=== PATIENT | male | born 1980 | race Two or more races ===

== ENCOUNTER 2018-07-26 07:45 | Day surgery (SDC) | payer MEDICARE, MEDICAID ==
[2018-07-26 08:36] VITALS: BMI 24.0
[2018-07-26] MEDS ORDERED: Propofol 10 mg/ml Inj (20 ML) ONE (10:28)
[2018-07-26] MEDS ORDERED: Midazolam 2 MG/2 ML VIAL ONE (10:28)
[2018-07-26] MEDS ORDERED: Lidocaine Hydrochloride 5 ML INJ ONE (10:29)
[2018-07-26] MEDS ORDERED: Lactated Ringer's 1,000 ML IV ONE (10:37)
--- NOTE | 2018-07-26 10:38 | CP.SDSHP ---
Same Day Surgery H & P - History Proposed Procedure: EGD/ COLONSCOPY Pre-Op Diagnosis: SEE NOTES - Previous Medical/Surgical History Neuro: Other Misc: Other Pain: 4.Moderate Pain - Allergies Allergies: Allergies latex Allergy (Verified 07/26/18 09:50) ITCHING - Physical Exam General Appearance: N Vital Signs: Vital Signs 07/26/18 08:15 Temperature 97.1 F L Pulse Rate 80 Respiratory 20 Rate Blood Pressure 115/72 O2 Sat by Pulse 97 Oximetry Mental Status: Alert & Oriented x3 Neuro: WNL Heart: WNL Lungs: WNL GI: Other - {Optional Preform as Required} Breast: WNL Abdomen: Other Rectal: Other Integument: WNL : WNL Ortho: WNL ENT: WNL - Impression Pt. Evaluated Today:Candidate for Anesthesia & Procedure: Yes - Date & Time Time: 10:37 Short Stay Discharge - Short Stay Discharge Admitting Diagnosis/Reason for Visit: DYSPEPSIA, CHANGE IN BOWEL HABITS Disposition: HOME/ ROUTINE Referrals: Bernadette Ybarra MD [Primary Care Provider] -
[2018-07-26] MEDS ORDERED: Belladonna-Phenobarbital PO STA (11:09)
[2018-07-26] MEDS: Sucralfate 1 gm/10 ml Oral Susp UD PO ONE ×2 (12:40→13:15)
[2018-07-26 13:48] VITALS: TEMP 97.4
[2018-07-26 13:56] VITALS: BP 104/64; PULSE 80; RESP 19; O2SAT 100
== END 2018-07-26 14:30 | disposition home or self-care (01) ==
LOC: C.ENDO 07:45
PROVIDERS: ATTEND Specialist
DX: D12.5 Benign neoplasm of sigmoid colon (principal); K64.8 Other hemorrhoids; K64.4 Residual hemorrhoidal skin tags; K44.9 Diaphragmatic hernia without obstruction or gangrene; K63.89 Other specified diseases of intestine; K29.50 Unspecified chronic gastritis without bleeding; Q61.3 Polycystic kidney, unspecified; Z98.2 Presence of cerebrospinal fluid drainage device; Z91.040 Latex allergy status
CPT/HCPCS: 43239; 45380; 88305; 88342; J2250; J2704; J3010; J7120

== ENCOUNTER 2018-09-14 20:27 | Inpatient (IN) | payer MEDICARE, MEDICAID ==
[2018-09-14 20:27] VITALS: BMI 24.0
--- NOTE | 2018-09-14 21:00 | C.PDOC ---
History Of Present Illness 38 y/o male with a PMHx of spina bifida and previous pyelonephritis and hydronephrosis, presents today complaining of difficulty passing his urine for the last couple of days. Patient reports only voiding a small amount of urine each time. He also complains of fullness in the bladder as well as left flank and suprapubic pain, which is constant. He denies any fevers, nausea, vomiting, or hematuria. Patient recently completed a colonoscopy with Dr. Rendon, which he states was normal. At his follow up appointment today, patient voiced these complaints and Dr. Rendon suggested he come to the ED. Time Seen by Provider: 09/14/18 20:41 Chief Complaint (Nursing): Male Genitourinary History Per: Patient History/Exam Limitations: no limitations Onset/Duration Of Symptoms: Days Current Symptoms Are (Timing): Still Present Associated Symptoms: Urinary Symptoms Past Medical History Reviewed: Historical Data, Nursing Documentation, Vital Signs Vital Signs: Last Vital Signs Temp 98.9 F 09/14/18 20:36 Pulse 82 09/14/18 20:36 Resp 20 09/14/18 20:36 BP 123/73 09/14/18 20:36 Pulse Ox 99 09/14/18 20:36 - Medical History PMH: Anemia (CHILDHOOD), Anxiety, Colonic Polyps, Depression (NO MEDICATION), Chronic Kidney Disease (HYDRONEPHROSIS,PYELONEPHRITIS) Denies: Fractures Other PMH: Spina Bifida Surgical History: Endoscopy Denies: Pacemaker Other Surgeries: 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 Negative for: Nausea, Vomiting, Diarrhea Genitourinary: Positive for: Other (difficulty passing urine). Negative for: Hematuria Musculoskeletal: Positive for: Back Pain (left flank) Skin: Negative for: Rash Neurological: Negative for: Headache, Dizziness Physical Exam - Physical Exam Appears: Non-toxic, No Acute Distress Skin: Warm, Dry, No Rash Head: Atraumatic, Normacephalic Eye(s): bilateral: Normal Inspection, PERRL, EOMI Neck: Normal ROM Chest: Symmetrical Cardiovascular: Rhythm Regular, No Murmur Respiratory: Normal Breath Sounds, No Accessory Muscle Use Gastrointestinal/Abdominal: Soft, No Tenderness, No Distention, No Guarding Back: CVA Tenderness (Slight left flank/CVA tenderness) Extremity: Bilateral: Atraumatic, Normal Color And Temperature Neurological/Psych: Oriented x3, Normal Speech ED Course And Treatment - Laboratory Results Result Diagrams: 09/14/18 21:10 09/14/18 21:10 Lab Interpretation: Abnormal (UA WBC 107 with many bacteria, nitrite positive, 3+ leukocyte esterase) O2 Sat by Pulse Oximetry: 99 (RA) Pulse Ox Interpretation: Normal - CT Scan/US CT abd/pel Other Rad Studies (CT/US): Read By Radiologist, Radiology Report Reviewed CT/US Interpretation: EXAM: CT Abdomen and Pelvis without IV contrast. CLINICAL HISTORY: Abd nd left flank pain. TECHNIQUE: Axial computed tomography images of the abdomen and pelvis without intravenous contrast. 0.00 mGy-cm. CONTRAST: Without. COMPARISON: None provided. FINDINGS: BREASTS: Mild-moderate bilateral gynecomastia is noted. LUNG BASES: The lung bases appear clear. No pleural effusions are seen. LIVER: Unremarkable. GALLBLADDER AND BILE DUCTS: The gallbladder appears within normal limits. No radioopaque gallstones are seen. No biliary ductal dilatation is evident. PANCREAS: Unremarkable. SPLEEN: Unremarkable. ADRENAL GLANDS: Unremarkable. KIDNEYS, URETERS, AND BLADDER: The right kidney appears within normal limits. There is severe left hydronephrosis/hydroureter noted of undetermined etiology. There is marked thinning of the left renal parenchyma indicating that this hydronephrosis has existed for a long time. The possibility of marked left vesicoureteral reflux should be considered. No urinary calculi are seen. The urinary bladder is poorly visualized due to decompression by a Guevara catheter. STOMACH AND BOWEL: Unremarkable appearance of the stomach and bowel. No evidence of bowel obstruction. No evidence suggesting enteritis or colitis. APPENDIX: No evidence of acute appendicitis on CT examination. PERITONEUM: No free fluid. No free air. A right sided ventriculoperitoneal shunt tubing is noted with its distal tip in the anterior left upper pelvis. LYMPH NODES: No lymphadenopathy is evident. REPRODUCTIVE: Unremarkable as visualized. VASCULATURE: No evidence of abdominal aortic aneurysm. BONES: No aggressive appearing osseous lesion. No acute osseous pathology evident. There is dysraphism at L3, L4, L5, S1. 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 IMPRESSION: 1. 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 No obstructing etiology detected. Therefore, the possibility of marked left vesicoureteral reflux should be considered. 2. A right-sided ventriculoperitoneal shunt tubing is present. 3. Dysraphism at L3-L4-L5-S1. 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 4. A Guevara catheter is present within the urinary bladder. 5. Mild-moderate bilateral gynecomastia. Progress Note: Orders placed for bladder scan, labs, and CT Abdomen/Pelvis. Bladder scan performed, 600cc of urine drained. Paged Dr. Rendon's service to discuss plan. - Physician Consult Information Time Consulting Physician Contacted: 22:27 Physician Contacted: Bernadette Ybarra Outcome Of Conversation: Patient to be admitted to her service for pyelonephritis Disposition - Disposition Disposition: HOSPITALIZED Disposition Time: 22:29 Condition: STABLE - POA Present On Arrival: None - Clinical Impression Clinical Impression: Urinary tract infection - Scribe Statement The provider has reviewed the documentation as recorded by the Prashant Roman Provider Attestation: All medical record entries made by the Prashant were at my direction and personally dictated by me. I have reviewed the chart and agree that the record accurately reflects my personal performance of the history, physical exam, medical decision making, and the department course for this patient. I have also personally directed, reviewed, and agree with the discharge instructions and disposition.
[2018-09-14 21:14] LABS: BASO % 0.4 % (0.0-2.0); EOS # 0.2 K/uL (0.0-0.7); EOS % 2.8 % (0.0-4.0); HEMOGLOBIN 13.5 g/dL (12.0-18.0); LYMPH # 1.6 K/uL (1.0-4.3); LYMPH % 29.4 % (20.0-40.0); MEAN CELL VOLUME 90.6 fL (80.0-94.0); MEAN CORPUSCULAR HEMOGLOBIN 29.2 pg (27.0-31.0); MEAN CORPUSCULAR HGB CONC 32.2 g/dL (33.0-37.0); MEAN PLATELET VOLUME 7.9 fL (7.2-11.7); MONO # 0.5 K/uL (0.0-0.8); MONO % 9.1 % (0.0-10.0); NEUT # 3.3 K/uL (1.8-7.0); NEUT % 58.3 % (50.0-75.0); RBC 4.62 Mil/uL (4.40-5.90); RED CELL DISTRIBUTION WIDTH 14.3 % (11.5-14.5); WHITE BLOOD COUNT 5.6 K/uL (4.8-10.8)
[2018-09-14 21:30] LABS: ALB/GLOB RATIO 1.5 (1.0-2.1); ALBUMIN 4.1 g/dL (3.5-5.0); ALT/SGPT 13 U/L (21-72); AST/SGOT 18 U/L (17-59); BLOOD UREA NITROGEN 18 mg/dL (9-20); CALCIUM 8.9 mg/dl (8.6-10.4); GFR NON-AFRICAN AMERICAN > 60; LIPASE 53 U/L (23-300)
[2018-09-14 21:56] LABS: SQUAMOUS EPITHIAL < 1 /hpf (0-5); URINE BACTERIA MOD (<OCC); URINE BILIRUBIN NEGATIVE (NEGATIVE); URINE BLOOD 2+ (NEGATIVE); URINE CLARITY Hazy (Clear); URINE GLUCOSE (UA) NORMAL (Normal); URINE LEUKOCYTE ESTERASE 3+ Leu/uL (Negative); URINE PROTEIN 2+ mg/dL (NEGATIVE); URINE UROBILINOGEN NORMAL mg/dL (0.2-1.0)
[2018-09-14 22:03] LABS: URINE COLOR YELLOW (YELLOW)
[2018-09-14] MEDS ORDERED: Sodium Chloride 0.9% 1,000 ML IV SCH (22:30)
[2018-09-14] MEDS ORDERED: HYDROmorphone 0.5 mg/0.5 ml ISec IVP PRN (22:30)
[2018-09-14] MEDS ORDERED: DEXTROS IVPB ONE (23:00)
[2018-09-14] MEDS ORDERED: CEFTRIAXONE IVPB ONE (23:00)
[2018-09-15] MEDS: Sodium Chloride 0.9% 1,000 ML IV SCH ×3 (00:07→20:52)
[2018-09-15] MEDS: HYDROmorphone 0.5 mg/0.5 ml ISec IVP PRN ×3 (00:07→18:41)
[2018-09-15] MEDS ORDERED: Sodium Chloride 0.9% 250 ML IV ONE (00:07)
[2018-09-15] MEDS ORDERED: cefTRIAXone IV 1 gm in Dextros 50 ML IVPB SCH (10:00)
--- NOTE | 2018-09-15 11:19 | CT ---
Date of service: 09/14/2018 PROCEDURE: CT Abdomen and Pelvis without intravenous contrast HISTORY: abd pain COMPARISON: None. TECHNIQUE: Technique. Contrast dose: Radiation dose: Total exam DLP = 289.24 mGy-cm. This CT exam was performed using one or more of the following dose reduction techniques: Automated exposure control, adjustment of the mA and/or kV according to patient size, and/or use of iterative reconstruction technique. FINDINGS: LOWER THORAX: Unremarkable. LIVER: Unremarkable. No gross lesion or ductal dilatation. GALLBLADDER AND BILE DUCTS: Unremarkable. PANCREAS: Unremarkable. No gross lesion or ductal dilatation. SPLEEN: Unremarkable. ADRENALS: Unremarkable. No mass. KIDNEYS AND URETERS: Markedly severe left hydroureter. Cortical thinning consistent with chronic obstruction. Findings may be secondary to left distal UVJ reflux and/or obstruction. VASCULATURE: Unremarkable. No aortic aneurysm. No aortic atherosclerotic calcification or mural plaque present. BOWEL: Unremarkable. No obstruction. No gross mural thickening. APPENDIX: Unremarkable. Normal appendix. PERITONEUM: Unremarkable. No free fluid. No free air. LYMPH NODES: Unremarkable. No enlarged lymph nodes. BLADDER: Guevara catheter in place. REPRODUCTIVE: Unremarkable. 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 IMPRESSION: Markedly severe left hydroureter. Cortical thinning consistent with chronic obstruction. Findings may be secondary to left distal UVJ reflux and/or obstruction.
--- NOTE | 2018-09-15 11:37 | CP.PCM.CON ---
History of Present Illness - History of Present Illness History of Present Illness: INFECTIOUS DISEASE CONSULT HPI 38 y/o male with a PMHx of spina bifida and previous pyelonephritis and hydronep hrosis, presents today complaining of difficulty passing his urine for the last couple of days. Patient reports only voiding a small amount of urine each time. He also complains of fullness in the bladder as well as left flank and suprapubic pain, which is constant. He denies any fevers, nausea, vomiting, or hematuria. Patient recently completed a colonoscopy with Dr. Rendon, which he states was normal. At his follow up appointment today, patient voiced these complaints and Dr. Rendon suggested he come to the ED. A CAT-SCAN OF THE ABDOMEN AND PELVIS SHOWED MARKED LEFT HYDRONEPHROSIS ( SEE FULL REPORT )/AND OBSTRUCTIVE UROPATHY. URINALYSIS HAD PYURIA/AND POSITIVE NITRITES AND LEUKOCYTES. INFECTIOUS DISEASE CONSULTATION THEREFORE REQUESTED BY PMD FOR COMPLICATED PYELONEPHRITIS AND HYDRONEPHROSIS. PATIENT ALSO HAS ISSUES OF ALLERGIES. SPOKE WITH ER PHYSICIAN AND PATIENT WAS GIVEN A TEST DOSE DIRECTED WITH iv ROCEPHIN. PATIENT TOLERATED IT WELL AND PRESENTLY ON IV ROCEPHIN. PT REPORTS ALLERGY TO IV MERREM? CANT BE POSSIBLE IF NO REACTION TO IV ROCEPHIN. 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 LATEX, MERREM. Review of Systems - Constitutional Constitutional: Chills, Malaise. absent: Fever - EENT Eyes: absent: Change in Vision Nose/Mouth/Throat: absent: Mouth Lesions, Mouth Pain - Cardiovascular Cardiovascular: absent: Chest Pain, Leg Edema, Pedal Edema - Gastrointestinal Gastrointestinal: Abdominal Pain, Constipation. absent: Nausea, Vomiting - Genitourinary Genitourinary: Difficulty Urinating, Urinary Frequency, Voiding Freq/Small Amts (CATHETHERIZES WITH ST. CATHETHER Q 4-5 HRS HIMSELF.), Freq UTI - Reproductive: Male Reproductive:Male: Pelvic Pain - Musculoskeletal Musculoskeletal: Neck Pain (RT. LANDSCAPE ARCHITECTURE PROFESSOR SHUNT.) - Neurological Neurological: As Per HPI - Hematologic/Lymphatic Hematologic: As Per HPI Past Patient History - Infectious Disease Hx of Infectious Diseases: None - Tetanus Immunizations Tetanus Immunization: Unknown - Past Medical History & Family History Past Medical History?: Yes - Past Social History Smoking Status: Never Smoked - CARDIAC Hx Pacemaker: No - PULMONARY Hx Respiratory Disorders: No - NEUROLOGICAL Hx Neurological Disorder: Yes (SPINA BIFIDA-CEREBRAL SHUNT) Other/Comment: LANDSCAPE ARCHITECTURE PROFESSOR SHUNT - HEENT Hx HEENT Problems: No Other/Comment: DRY EYES - RENAL Hx Chronic Kidney Disease: Yes (HYDRONEPHROSIS,PYELONEPHRITIS) - ENDOCRINE/METABOLIC Hx Endocrine Disorders: Yes Other/Comment: HYPOVITAMINOSIS D - HEMATOLOGICAL/ONCOLOGICAL Hx Anemia: Yes (CHILDHOOD) - INTEGUMENTARY Hx Dermatological Problems: Yes (LEFT TRAYLOR CELLULITIS/ABSCESS) Other/Comment: hx of non healing ulcer 2010 and left traylor cellulitis/abcess 2013, scars to lle and ft, dry skin to both feet - MUSCULOSKELETAL/RHEUMATOLOGICAL Hx Falls: No Hx Fractures: No - GASTROINTESTINAL Hx Gastrointestinal Disorders: Yes (CONSTIPATION/INCONTINENT) Other/Comment: has bm q3 days has chronic constipation takes prune juice. APRIL 2018 DURING HOSPITAL ADMISSION REPORTS " [facility] " ON LIVER - GENITOURINARY/GYNECOLOGICAL Hx Genitourinary Disorders: Yes Hx Incontinence: Yes (SELF CATHETHERIZATION) Hx Prostate Problems: No Other/Comment: NEUROGENIC BLADDER, FREQUENT UTI - PSYCHIATRIC Hx Anxiety: Yes Hx Depression: Yes (NO MEDICATION) Hx Substance Use: No - SURGICAL HISTORY Hx Surgeries: Yes (LANDSCAPE ARCHITECTURE PROFESSOR SHUNT,SPINAL SURGERY,CLUBBED FEET SURGERY,KIDNEY SURGERY) Hx Musculoskeletal Surgery: Yes (bilat leg surgery) Hx Orthopedic Surgery: Yes Other/Comment: vp clinical shunt, spinal sx, clubed feet sx, kidney sx - ANESTHESIA Hx Anesthesia: Yes Hx Anesthesia Reactions: No Hx Malignant Hyperthermia: No Meds Allergies/Adverse Reactions: Allergies Allergy/AdvReac Type Severity Reaction Status Date / Time latex Allergy ITCHING Verified 07/26/18 09:50 meropenem Allergy Verified 09/14/18 20:40 - Medications Medications: Current Medications Acetaminophen (Tylenol 325mg Tab) 650 mg PO Q6 PRN PRN Reason: Pain, moderate (4-7) Famotidine (Pepcid) 20 mg PO DAILY [facility] Last Admin: 09/15/18 10:24 Dose: 20 mg Hydromorphone HCl (Dilaudid) 0.25 mg IVP Q6H PRN PRN Reason: Pain, severe (8-10) Last Admin: 09/15/18 00:07 Dose: 0.25 mg Sodium Chloride (Sodium Chloride 0.9%) 1,000 mls @ 100 mls/hr IV .Q10H [facility] Last Admin: 09/15/18 10:22 Dose: 100 mls/hr Ceftriaxone Sodium (Rocephin Iv 1 Gm Duplex) 50 mls @ 100 mls/hr IVPB DAILY [facility] MIGUEL; Protocol Last Admin: 09/15/18 10:18 Dose: 100 mls/hr Physical Exam - Constitutional Appears: No Acute Distress - Head Exam Head Exam: NORMAL INSPECTION - Eye Exam Eye Exam: EOMI, PERRL - ENT Exam ENT Exam: Normal Oropharynx - Neck Exam Neck exam: Positive for: Normal Inspection. Negative for: Meningismus - Respiratory Exam Respiratory Exam: Clear to Auscultation Bilateral - Cardiovascular Exam Cardiovascular Exam: REGULAR RHYTHM, +S1, +S2 - GI/Abdominal Exam GI & Abdominal Exam: Normal Bowel Sounds, Soft, Tenderness (SUPRAPUBIC.) - Extremities Exam Extremities exam: Positive for: normal capillary refill. Negative for: calf tenderness, pedal edema - Neurological Exam Neurological exam: Alert, CN II-XII Intact, Oriented x3 - Psychiatric Exam Psychiatric exam: Normal Mood - Skin Skin Exam: Dry, Normal Color, Warm Results - Vital Signs Recent Vital Signs: Last Vital Signs Temp 97.9 F 09/15/18 07:10 Pulse 62 09/15/18 07:10 Resp 18 09/15/18 07:10 BP 91/56 L 09/15/18 07:10 Pulse Ox 98 09/15/18 07:10 - Labs Result Diagrams: 09/14/18 21:10 09/14/18 21:10 Labs: Laboratory Results - last 24 hr 09/14/18 09/14/18 09/14/18 21:10 21:10 21:43 WBC 5.6 RBC 4.62 Hgb 13.5 Hct 41.9 MCV 90.6 MCH 29.2 MCHC 32.2 L RDW 14.3 Plt Count 252 MPV 7.9 Neut % (Auto) 58.3 Lymph % (Auto) 29.4 [place] % (Auto) 9.1 Eos % (Auto) 2.8 Baso % (Auto) 0.4 Neut # (Auto) 3.3 Lymph # (Auto) 1.6 [place] # (Auto) 0.5 Eos # (Auto) 0.2 Baso # (Auto) 0.0 Sodium 142 Potassium 4.5 Chloride 105 Carbon Dioxide 26 Anion Gap 15 BUN 18 Creatinine 0.8 Est GFR ( Amer) > 60 Est GFR (Non-Af Amer) > 60 Random Glucose 83 Calcium 8.9 Total Bilirubin 0.7 AST 18 ALT 13 L Alkaline Phosphatase 76 Total Protein 6.9 Albumin 4.1 Globulin 2.8 Albumin/Globulin Ratio 1.5 Lipase 53 Urine Color Yellow Urine Clarity Hazy Urine pH 7.0 Ur Specific [place] 1.014 Urine Protein 2+ H Urine Glucose (UA) Normal Urine Ketones Negative Urine Blood 2+ H Urine Nitrate Positive H Urine Bilirubin Negative Urine Urobilinogen Normal Ur Leukocyte Esterase 3+ H Urine WBC (Auto) 107 H Urine RBC (Auto) 42 H Ur Squamous Epith Cells < 1 Urine Bacteria Mod H - Imaging and Cardiology CT scan - abdomen/PELVIS Status: Report reviewed by me (SEE REPORT.) Assessment & Plan (1) Urinary retention Status: Acute (2) Urinary tract infection Status: Acute (3) Spina bifida Status: Acute (4) S/P LANDSCAPE ARCHITECTURE PROFESSOR shunt Status: Acute - Assessment and Plan (Free Text) Plan: PLAN; PANCULTURE. F/U U/A AND URINE CULTURE. CONTINUE IV ROCEPHIN 1GM IVPB Q 12 HRLY. F/U BLOOD WORKS. CONSULT IN PROGRESS. WILL F/U WITH YOU AND MAKE FURTHER RECOMMENDATIONS AFTER CULTURES ARE OBTAINED.
[2018-09-15 18:04] LABS: IRON 35 ug/dL (49-181)
[2018-09-15 18:13] LABS: % IRON SATURATION 13 (20-55); TOTAL IRON BINDING CAPACITY 275 ug/dL (250-450)
[2018-09-15 19:19] LABS: FOLATE 4.7 ng/mL
--- NOTE | 2018-09-15 21:18 | CP.PCM.CON ---
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 - HEENT Hx HEENT Problems: No Other/Comment: DRY EYES - RENAL Hx Chronic Kidney Disease: Yes (HYDRONEPHROSIS,PYELONEPHRITIS) - ENDOCRINE/METABOLIC Hx Endocrine Disorders: Yes Other/Comment: HYPOVITAMINOSIS D - HEMATOLOGICAL/ONCOLOGICAL Hx Anemia: Yes (CHILDHOOD) - INTEGUMENTARY Hx Dermatological Problems: Yes (LEFT TRAYLOR CELLULITIS/ABSCESS) Other/Comment: hx of non healing ulcer 2010 and left traylor cellulitis/abcess 2013, scars to lle and ft, dry skin to both feet - MUSCULOSKELETAL/RHEUMATOLOGICAL Hx Falls: No Hx Fractures: No - GASTROINTESTINAL Hx Gastrointestinal Disorders: Yes (CONSTIPATION/INCONTINENT) Other/Comment: has bm q3 days has chronic constipation takes prune juice. 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,SPINAL SURGERY,CLUBBED FEET SURGERY,KIDNEY SURGERY) Hx Musculoskeletal Surgery: Yes (bilat leg surgery) Hx Orthopedic Surgery: Yes Other/Comment: group marketing vp shunt, spinal sx, clubed feet sx, kidney sx - ANESTHESIA Hx Anesthesia: Yes Hx Anesthesia Reactions: No Hx Malignant Hyperthermia: No Meds Allergies/Adverse Reactions: Allergies Allergy/AdvReac Type Severity Reaction Status Date / Time latex Allergy ITCHING Verified 07/26/18 09:50 meropenem Allergy Verified 09/14/18 20:40 - Medications Medications: Current Medications Acetaminophen (Tylenol 325mg Tab) 650 mg PO Q6 PRN PRN Reason: Pain, moderate (4-7) Famotidine (Pepcid) 20 mg PO DAILY [facility] Last Admin: 09/15/18 10:24 Dose: 20 mg Hydromorphone HCl (Dilaudid) 0.25 mg IVP Q6H PRN PRN Reason: Pain, severe (8-10) Last Admin: 09/15/18 18:41 Dose: 0.25 mg Sodium Chloride (Sodium Chloride 0.9%) 1,000 mls @ 100 mls/hr IV .Q10H [facility] Last Admin: 09/15/18 20:52 Dose: Not Given Ceftriaxone Sodium (Rocephin Iv 1 Gm Duplex) 50 mls @ 100 mls/hr IVPB DAILY JOSÉ MIGUEL; Protocol Last Admin: 09/15/18 10:18 Dose: 100 mls/hr Results - Vital Signs Recent Vital Signs: Last Vital Signs Temp 98.2 F 09/15/18 15:05 Pulse 83 09/15/18 15:05 Resp 20 09/15/18 15:05 BP 105/68 09/15/18 15:05 Pulse Ox 97 09/15/18 15:05 - Labs Result Diagrams: 09/14/18 21:10 09/14/18 21:10 Labs: Laboratory Results - last 24 hr 09/14/18 09/14/18 09/14/18 21:10 21:10 21:43 WBC 5.6 RBC 4.62 Hgb 13.5 Hct 41.9 MCV 90.6 MCH 29.2 MCHC 32.2 L RDW 14.3 Plt Count 252 MPV 7.9 Neut % (Auto) 58.3 Lymph % (Auto) 29.4 [place] % (Auto) 9.1 Eos % (Auto) 2.8 Baso % (Auto) 0.4 Neut # (Auto) 3.3 Lymph # (Auto) 1.6 [place] # (Auto) 0.5 Eos # (Auto) 0.2 Baso # (Auto) 0.0 Sodium 142 Potassium 4.5 Chloride 105 Carbon Dioxide 26 Anion Gap 15 BUN 18 Creatinine 0.8 Est GFR ( Amer) > 60 Est GFR (Non-Af Amer) > 60 Random Glucose 83 Hemoglobin A1c Calcium 8.9 Iron TIBC % Saturation Total Bilirubin 0.7 AST 18 ALT 13 L Alkaline Phosphatase 76 Total Protein 6.9 Albumin 4.1 Globulin 2.8 Albumin/Globulin Ratio 1.5 Triglycerides Cholesterol LDL Cholesterol Direct HDL Cholesterol Lipase 53 Vitamin B12 Folate Urine Color Yellow Urine Clarity Hazy Urine pH 7.0 Ur Specific [place] 1.014 Urine Protein 2+ H Urine Glucose (UA) Normal Urine Ketones Negative Urine Blood 2+ H Urine Nitrate Positive H Urine Bilirubin Negative Urine Urobilinogen Normal Ur Leukocyte Esterase 3+ H Urine WBC (Auto) 107 H Urine RBC (Auto) 42 H Ur Squamous Epith Cells < 1 Urine Bacteria Mod H 09/15/18 09/15/18 09/15/18 17:41 17:41 17:41 WBC RBC Hgb Hct MCV MCH MCHC RDW Plt Count MPV Neut % (Auto) Lymph % (Auto) [place] % (Auto) Eos % (Auto) Baso % (Auto) Neut # (Auto) Lymph # (Auto) [place] # (Auto) Eos # (Auto) Baso # (Auto) Sodium Potassium Chloride Carbon Dioxide Anion Gap BUN Creatinine Est GFR ( Amer) Est GFR (Non-Af Amer) Random Glucose Hemoglobin A1c 4.5 Calcium Iron 35 L TIBC 275 % Saturation 13 L Total Bilirubin AST ALT Alkaline Phosphatase Total Protein Albumin Globulin Albumin/Globulin Ratio Triglycerides 96 Cholesterol 103 LDL Cholesterol Direct 67 HDL Cholesterol 30 Lipase Vitamin B12 280 Folate 4.7 Urine Color Urine Clarity Urine pH Ur Specific [place] Urine Protein Urine Glucose (UA) Urine Ketones Urine Blood Urine Nitrate Urine Bilirubin Urine Urobilinogen Ur Leukocyte Esterase Urine WBC (Auto) Urine RBC (Auto) Ur Squamous Epith Cells Urine Bacteria Assessment & Plan - Assessment and Plan (Free Text) Assessment: IMP: UTI HYDRONEPHROSIS NEUROGENIC BLADDER SPINA BIFIDA FULL NOTE TBD YS - Date & Time Date: 09/15/18 Time: 21:17
[2018-09-15] MEDS: cefTRIAXone IV 1 gm in Dextros 50 ML IVPB SCH (23:49)
--- NOTE | 2018-09-16 01:46 | HP ---
CHIEF COMPLAINT: Suprapubic pain, urinary problem. HISTORY OF PRESENT ILLNESS: Mr. Cristhian Ruff is a 38-year-old male with past medical history of spina bifida, pyelonephritis, hydronephrosis came with difficulty of passing urine from last couple of days. The patient reports that only voiding a small amount of urine each time. He is complaining of fullness in the bladder as well as left flank and suprapubic pain, which is consistent. No fever, no chills. No nausea, vomiting, or diarrhea. Actually, the patient cannot urinate. He is doing self-catheterization. Recently, the patient went to see Dr. Rendon for colonoscopy which states that according to patient it was normal. Dr. Rendon suggested the patient to go to emergency room. ER tried to reach Dr. Rendon, but failed. I saw the patient looking a little bit comfortable, no fever, no chills. PAST MEDICAL HISTORY: Anemia, anxiety, colonic polyps, depression, chronic kidney disease, hydronephrosis, pyelonephritis, spina bifida, cannot urinate, doing self catheterization, has PER DIEM REGISTERED NURSE shunt. SOCIAL HISTORY: No smoking, no drugs, no ethanol. ALLERGIES: THE PATIENT IS ALLERGIC TO LATEX AND MEROPENEM. FAMILY HISTORY: Father, mother noncontributory. REVIEW OF SYSTEMS: The patient seen and examined at bedside, looking comfortable, still having suprapubic pain but no fever or chills. No hematuria. No hematochezia. No headache or dizziness. No chest pain or palpitation. PHYSICAL EXAMINATION: VITAL SIGNS: Temperature 97.9, pulse 62, blood pressure 91/56, respiratory rate 18. HEENT: Head: Normocephalic, atraumatic. Eyes: PERRLA. Extraocular muscles intact. Conjunctivae clear. Nose patent. Mucous membrane moist. NECK: Supple. No carotid bruits, JVD, or thyromegaly. CHEST: Bilateral symmetrical. HEART: S1 and S2 positive. LUNGS: Clear to auscultation. ABDOMEN: Soft. Bowel sounds present. No organomegaly. EXTREMITIES: No edema. No cyanosis. NEUROLOGIC: The patient is awake, alert. Moving all four extremities. No focal deficits. LABORATORY DATA: White blood cells 5.6, hemoglobin 13.5, hematocrit 41.9, platelets 252. Sodium 142, potassium 4.5, BUN 18, creatinine 0.8. Liver functions are within normal limits. ASSESSMENT AND PLAN: Mr. Cristhian Ruff is a 38-year-old male with proteinuria, hematuria, urinary tract infection. CAT scan of the abdomen and pelvis done. Mildly severe left hydroureter, cortical thinning consistent with chronic obstruction. Finding may secondary to left distal ureterovesical junction reflux and/or obstruction. History of spina bifida. Has cerebral shunt, ventriculoperitoneal shunt, hydronephrosis, pyelonephritis, vitamin D deficiency. The patient is left with some cellulitis/abscess. The patient had nonhealing ulcers on left and cellulitis in the past, now has scar tissues, constipation. The patient cannot urinate by himself, doing self-catheterization, admitted for urinary tract infection, call Infectious Disease and Urology. Stopped his antibiotic. Waiting for urine culture and blood culture. We will follow up. Bernadette Ybarra MD
[2018-09-16] MEDS: Sodium Chloride 0.9% 1,000 ML IV SCH ×2 (05:28→14:10)
[2018-09-16 07:59] LABS: HEMOGLOBIN 12.3 g/dL (12.0-18.0); MEAN CELL VOLUME 90.4 fL (80.0-94.0); MEAN CORPUSCULAR HEMOGLOBIN 29.1 pg (27.0-31.0); MEAN CORPUSCULAR HGB CONC 32.2 g/dL (33.0-37.0); MEAN PLATELET VOLUME 8.1 fL (7.2-11.7); RBC 4.23 Mil/uL (4.40-5.90); RED CELL DISTRIBUTION WIDTH 13.9 % (11.5-14.5); WHITE BLOOD COUNT 5.3 K/uL (4.8-10.8)
[2018-09-16 08:11] LABS: BLOOD UREA NITROGEN 12 mg/dL (9-20); CALCIUM 8.5 mg/dl (8.6-10.4); GFR NON-AFRICAN AMERICAN > 60
[2018-09-16] MEDS: HYDROmorphone 0.5 mg/0.5 ml ISec IVP PRN ×2 (11:35→18:28)
[2018-09-16] MEDS: cefTRIAXone IV 1 gm in Dextros 50 ML IVPB SCH (11:35)
--- NOTE | 2018-09-16 18:43 | PN ---
DATE: 09/16/2018 SUBJECTIVE: The patient is a 38-year-old male. The patient was seen and examined at the bedside on 09/16/2018, still complaining about abdominal pain. No fever, no chills, no hematuria or hematochezia, no headache or dizziness, and no chest pain, no palpitation. PHYSICAL EXAMINATION: VITAL SIGNS: Temperature 98.4, pulse 80, blood pressure 113/26, and respiratory rate 20. HEENT: Head is normocephalic and atraumatic. Eyes: PERRLA. Extraocular muscles intact. Conjunctivae clear. Nose patent. NECK: Supple. No carotid bruit. No JVD or thyromegaly. CHEST: Bilaterally symmetrical. HEART: S1 and S2 positive. LUNGS: Clear to auscultation. ABDOMEN: Soft. Bowel sounds present. No organomegaly. EXTREMITIES: No edema. No cyanosis. NEUROLOGIC: The patient is awake and alert, moving all four extremities. No focal deficits. MEDICATIONS: Dilaudid, Pepcid, Rocephin, LABORATORY DATA: White blood cells 5.3, hemoglobin 12.3, hematocrit 38.3, and platelets 223. Sodium 137, potassium 4.3, BUN 12, creatinine 0.9, calcium 8.5, iron 35. ASSESSMENT AND PLAN: Mr. Cristhian Ruff is a 38-year-old male with hyperchloremia, hypocalcemia , iron deficiency, proteinuria, hematuria, urinary tract infection; came with abdominal pain. CAT scan of the abdomen and pelvis done. The patient has history of spina bifida, cannot control urine, using self catheterization, history of constipation, neurogenic bladder, frequent urinary tract infection, ventriculoperitoneal shunt, spinal surgeries, kidney surgeries, bilateral leg surgeries, clubbed feet surgeries, came with urinary tract infection, getting antibiotics, hydronephrosis. According to the patient, his colonoscopy was done recently, polypectomy was done. Dr. Rendon told him something, but he do not remember, I could consult the Dr. Rendon to follow up. We will call Infectious Disease also, physical therapy, pain management, hydration. We will follow. Bernadette Ybarra MD [facility] # [id number]
--- NOTE | 2018-09-16 18:47 | PCM.URO ---
Urology Progress Note - General General: No Complaints, Tolerating Diet - Subjective Abdominal Pain: No Flank Pain: No Voiding Well: No Hematuria: No Chest Pain: No Fever & Chills: No - Objective Lab Studies: Reviewed (creat=0.9 wbc=5,300 urine culture: proteus) Lab Results Last 24 Hours: Laboratory Results - last 24 hr 09/15/18 09/16/18 09/16/18 17:41 07:52 07:52 WBC 5.3 RBC 4.23 L Hgb 12.3 Hct 38.3 MCV 90.4 MCH 29.1 MCHC 32.2 L RDW 13.9 Plt Count 223 MPV 8.1 Sodium 139 Potassium 4.3 Chloride 108 H Carbon Dioxide 27 Anion Gap 7 L BUN 12 Creatinine 0.9 Est GFR ( Amer) > 60 Est GFR (Non-Af Amer) > 60 Random Glucose 90 Calcium 8.5 L Vitamin B12 280 Folate 4.7 TSH 3rd Generation 1.78 Intake & Output: Intake & Output 09/15/18 09/16/18 09/16/18 18:59 06:59 18:59 Intake Total 3394 194 3603 Output Total 900 1800 1000 Balance 260 -1000 0 Intake: Intake, IV Amount 800 800 700 Right Antecubital 800 800 700 Oral 360 300 Output: Urine 900 1800 1000 Urethral (Martin) 900 1800 1000 Vital Signs: Vital Signs - 24 hr 09/15/18 09/16/18 09/16/18 23:39 08:00 15:00 Temperature 98.2 F 98.4 F 97.8 F Pulse Rate 85 80 86 Respiratory 18 20 20 Rate Blood Pressure 96/60 L 113/26 L 101/69 O2 Sat by Pulse 95 96 97 Oximetry - Physical Exam Abdominal Exam: Soft, Non-Tender, Non-Distended Bowel Sounds: Normal Back: No CVA Tenderness Genitalia: Without Inflammation Urinary Catheter Draining Well: Yes Urine Color: Yellow (cloudy via martin catheter) - Male Phallus: Normal Scrotum: Normal Testes: Normal: Bilateral - Plan Additional Information: IMP: uti. neurogenic bladder. L hydronephrosis. Rec/p: antibiotic rx. consider catheter removal and then resume intermittent self-catheterizion. discussed w pt. psa. urine culture. consider cysto, cmg, cgm. or consider pt's returning to his previous urologist. Discussed w pt. YS - Date & Time of Note Date: 09/16/18 Time: 12:45
[2018-09-17] MEDS: Sodium Chloride 0.9% 1,000 ML IV SCH (00:21)
[2018-09-17] MEDS: HYDROmorphone 0.5 mg/0.5 ml ISec IVP PRN ×4 (00:22→21:36)
[2018-09-17] MEDS: cefTRIAXone IV 1 gm in Dextros 50 ML IVPB SCH ×2 (00:22→10:47)
[2018-09-17] MEDS: Calcium-Vit D 250 mg-125 Units Tab UD PO SCH (09:45)
--- NOTE | 2018-09-17 10:39 | PN ---
DATE: 09/17/2018 LOCATION: 564, bed B. SUBJECTIVE: This is a 38-year-old male seen initially for GI consultation on 09/16/2018 as requested by the admitting medical staff, reexamined again today with intermittent period of abdominal pain, postprandial abdominal distention with recent change of bowel movement habit. The patient is paraplegic with prosthetic legs, on record, still have lower abdominal pain as well as bilateral flank pain, on and off passing urine. The entire chart is reviewed including but not limited to the most recent lab and radiology study results, current and previous medication list, current and previous medical events and today's lab results, however, is still pending but the latest CBC reported to be normal with normal BUN and creatinine, but calcium 8.5 with low ALT and iron. The official report of the CAT scan of abdomen seen and done at the time of the admission reviewed. PHYSICAL EXAMINATION: GENERAL: A 38-year-old male. VITAL SIGNS: Afebrile with pulse of 82, respiratory rate 18-20, blood pressure of 120/74. HEENT: Showed pale dry oral mucous membrane. Nonicteric sclerae. LUNGS: Few scattered crepitation. Decreased air entry at bases. HEART: Positive S1 and S2. ABDOMEN: Soft with mild generalized tenderness. No mass or organomegaly. No rebound tenderness or guarding, but right and left lower quadrant tenderness as well as positive CVA tenderness, mainly on the left side. EXTREMITIES: The patient is with paraplegia and prosthetic lower extremities. No reported new neurological deficits, sensory or motor. IMPRESSION: 1. Hypochromic microcytic anemia by history. 2. Re-exacerbation of peptic ulcer disease. 3. Abnormal CAT scan of the abdomen and pelvis. 4. Known history of electrolyte imbalance, iron deficiency with reported urinary tract infection before. 5. Status post colonoscopy with polypectomy done recently. SUGGESTIONS: 1. Continue current management. 2. Further aggressive workup by the urology remediation bioanalytics consultant, Dr. Cazares. 3. The patient needs followup colonoscopy after 1 year depending on outcome of the pathology report of the recently done colonoscopy with polypectomy. 4. Further recommendation to follow. Misty Castillo MD [facility] # [id number]
[2018-09-17] MEDS ORDERED: MEROPENEM IVPB ONE (11:00)
[2018-09-17] MEDS ORDERED: SODIUM CHLORIDE 0.9% IVPB ONE (11:00)
[2018-09-17] MEDS ORDERED: DiphenhydrAMINE 50 mg/ml Inj IVP PRN (11:18)
[2018-09-17] MEDS: Meropenem 500 MG in Sodium Chloride 0.9% 100 ML IVPB SCH (22:29)
--- NOTE | 2018-09-17 23:09 | CP.PCM.PN ---
Subjective - Date & Time of Evaluation Date of Evaluation: 09/17/18 Time of Evaluation: 23:09 - Subjective Subjective: CHIEF COMPLAINTS TODAY : AFEBRILE, VSS NO NEW COMPLAINTS PT TOLERATED I V ROCEPHIN. SEEN BY GU. CARCAMO HEENT : N. Resp : No cough, wheezing ,pleuritic CP ,or hemoptysis Cardio : No anginal CP, PND, orthopnea, palpitation GI : No abd.pain, n/v ,diarrhea or GI bleeding . SOLAR ENERGY SALES SPECIALIST : No headache, vertigo, focal deficit. Musculoskel : No joint swelling , Derm : No rash Psych : Normal affect. Ext : No swelling ,calf pain PE. Pt. is alert awake in no distress. V.S As noted in the chart Head ,ear nose,throat and eyes : Normal. Neck : Supple with normal carotids. Lungs: Clear air entry. Heart : S1 & S2 normal with S4. No murmur. Abd : Soft non tender with normal bowel sounds. Neuro : Moves all ext. with no localized deficit. Ext : No edema with intact pulses.Non tender calves Derm : No rashes or decubitus ulcer. LABS/RADIOLOGY: URINE CULTURE POSITIVE FOR PROTEUS MIRABILIS S - TO MERREM. Objective - Vital Signs/Intake and Output Vital Signs (last 24 hours): Temp Pulse Resp BP Pulse Ox 99 F 96 H 20 103/69 96 09/17/18 16:00 09/17/18 16:00 09/17/18 16:00 09/17/18 16:00 09/17/18 16:00 Intake and Output: 09/17/18 09/18/18 18:59 06:59 Intake Total 475 Output Total 700 Balance -225 - Medications Medications: Current Medications Acetaminophen (Tylenol 325mg Tab) 650 mg PO Q6 PRN PRN Reason: Pain, moderate (4-7) Last Admin: 09/16/18 09:50 Dose: 650 mg Calcium/Vitamin D (Oscal-D 250 Mg-125 Units Tab) 1 tab PO DAILY [facility] Last Admin: 09/17/18 09:45 Dose: 1 tab Diphenhydramine HCl (Benadryl) 25 mg IVP ONCE PRN Diphenhydramine HCl (Benadryl) 50 mg PO Q8 PRN PRN Reason: Allergy symptoms Last Admin: 09/17/18 21:46 Dose: 50 mg Famotidine (Pepcid) 20 mg PO DAILY [facility] Last Admin: 09/17/18 09:45 Dose: 20 mg Famotidine (Pepcid) 20 mg IVP ONCE PRN Ferrous Sulfate (Feosol) 325 mg PO TID [facility] Last Admin: 09/17/18 17:17 Dose: 325 mg Hydromorphone HCl (Dilaudid) 0.5 mg IVP Q6H PRN PRN Reason: Pain, severe (8-10) Last Admin: 09/17/18 21:36 Dose: 0.5 mg Ceftriaxone Sodium (Rocephin Iv 1 Gm Duplex) 50 mls @ 100 mls/hr IVPB Q12H JOSÉ MIGUEL; Protocol Last Admin: 09/17/18 10:47 Dose: 100 mls/hr Meropenem 500 mg/ Sodium (Chloride) 100 mls @ 100 mls/hr IVPB Q8H JOSÉ MIGUEL; Protocol Last Admin: 09/17/18 22:29 Dose: 100 mls/hr Methylprednisolone (Solu-Medrol) 125 mg IVP ONCE PRN - Labs Labs: 09/16/18 07:52 09/16/18 07:52 Assessment and Plan (1) Urinary retention Status: Acute (2) Urinary tract infection Status: Acute (3) Spina bifida Status: Acute (4) S/P ASSISTANT ASSOCIATE FULL PROFESSOR shunt Status: Acute - Assessment and Plan (Free Text) Plan: D/C IV ROCEPHIN. CASE DISCUSSED WITH NURSE PRACTITIONER MS CARPIO/ PHARMACY/AND NURSE ARTIFICIAL STONE APPLICATOR. PATIENT TO GET A TEST DOSE OFF iv MERREM DISCUSSED WITH PHARMACIST.PATIENT MADE AWARE OF THE TEST DOSE. IF TOLERATED TO CONTINUE iv mERREM 500 MG EVERY 8 HOURLY FOR MULTIDRUG- RESISTANT pROTEUS MIRABILIS. CONTACT ISOLATION. PER FURTHER WORKUP.
[2018-09-18] MEDS: cefTRIAXone IV 1 gm in Dextros 50 ML IVPB SCH ×3 (00:17→22:40)
[2018-09-18] MEDS: Meropenem 500 MG in Sodium Chloride 0.9% 100 ML IVPB SCH ×3 (05:53→21:00)
[2018-09-18 09:37] LABS: BASO % 0.6 % (0.0-2.0); EOS # 0.2 K/uL (0.0-0.7); HEMOGLOBIN 11.8 g/dL (12.0-18.0); LYMPH # 1.2 K/uL (1.0-4.3); LYMPH % 32.2 % (20.0-40.0); MEAN CELL VOLUME 89.1 fL (80.0-94.0); MEAN CORPUSCULAR HEMOGLOBIN 30.4 pg (27.0-31.0); MEAN CORPUSCULAR HGB CONC 34.1 g/dL (33.0-37.0); MEAN PLATELET VOLUME 7.7 fL (7.2-11.7); MONO # 0.5 K/uL (0.0-0.8); MONO % 12.4 % (0.0-10.0); NEUT # 1.9 K/uL (1.8-7.0); NEUT % 49.8 % (50.0-75.0); NRBC % 0.1 % (0.0-2.0); RBC 3.89 Mil/uL (4.40-5.90); RED CELL DISTRIBUTION WIDTH 13.8 % (11.5-14.5); WHITE BLOOD COUNT 3.7 K/uL (4.8-10.8)
[2018-09-18] MEDS: Calcium-Vit D 250 mg-125 Units Tab UD PO SCH (09:43)
[2018-09-18 09:51] LABS: ALB/GLOB RATIO 1.3 (1.0-2.1); ALBUMIN 3.3 g/dL (3.5-5.0); ALT/SGPT 15 U/L (21-72); AST/SGOT 14 U/L (17-59); BLOOD UREA NITROGEN 9 mg/dL (9-20); CALCIUM 8.9 mg/dl (8.6-10.4); GFR NON-AFRICAN AMERICAN > 60
--- NOTE | 2018-09-18 10:50 | PN ---
DATE: 09/18/2018 LOCATION: 564, bed B. SUBJECTIVE: This is a 38-year-old male, known case for me, seen and examined in rounds, on IV antibiotics due to his urinary tract infection and pyelonephritis. No reported active bleeding, nausea, vomiting or evidence of increased shortness of breath. No chest pain or palpitation. No reported chills or fever so far. The entire chart is reviewed including but not limited to the most recent lab and radiology study results, current and the previous medication list, current and the previous medical events and the case discussed with the staff at length. Today's lab results, however, is still pending. PHYSICAL EXAMINATION: GENERAL: A 38-year-old male, afebrile, awake, alert, oriented with pulse of 82, respiratory rate 20-22, blood pressure of 116/72. HEENT: Showed pale dry oral mucous membrane. Nonicteric sclerae. LUNGS: Few scattered crepitation. Decreased air entry at bases. HEART: Positive S1 and S2. ABDOMEN: Soft with mild generalized tenderness. No mass or organomegaly. No rebound tenderness or guarding. NEUROLOGIC: No reported new neurological deficits, sensory or motor. The patient is paraplegic. IMPRESSION: 1. Re-exacerbation of peptic ulcer disease. 2. Urinary retention with pyelonephritis and urinary tract infection. 3. Known history of spinal bifida. 4. Status post ventriculoperitoneal shunt. 5. Hypochromic microcytic anemia by history could be secondary to above with re-exacerbation of peptic ulcer disease. 6. Abnormal CAT scan of the abdomen and pelvis. 7. Status post colonoscopy with polypectomy, done recently. SUGGESTIONS: 1. Agree with your plan. 2. Guaiac all the stools daily x3. 3. Antireflux measure. 4. Further recommendation to follow. Misty Castillo MD
[2018-09-18] MEDS: HYDROmorphone 0.5 mg/0.5 ml ISec IVP PRN ×2 (12:24→20:15)
--- NOTE | 2018-09-18 23:52 | CP.PCM.PN ---
Subjective - Date & Time of Evaluation Date of Evaluation: 09/18/18 Time of Evaluation: 23:52 - Subjective Subjective: AFEBRILE, tOLERATED iv MERREM. NO COMPLAINTS OR RASHES NOTED. nO SHORTNESS OF BREATH. fEELING OKAY. Objective - Vital Signs/Intake and Output Vital Signs (last 24 hours): Temp Pulse Resp BP Pulse Ox 98.2 F 84 20 115/76 95 09/18/18 16:03 09/18/18 16:03 09/18/18 16:03 09/18/18 16:03 09/18/18 16:03 Intake and Output: 09/18/18 09/19/18 18:59 06:59 Intake Total 600 Output Total 2000 Balance -1400 - Medications Medications: Current Medications Acetaminophen (Tylenol 325mg Tab) 650 mg PO Q6 PRN PRN Reason: Pain, moderate (4-7) Last Admin: 09/16/18 09:50 Dose: 650 mg Calcium/Vitamin D (Oscal-D 250 Mg-125 Units Tab) 1 tab PO DAILY [facility] Last Admin: 09/18/18 09:43 Dose: 1 tab Diphenhydramine HCl (Benadryl) 25 mg IVP ONCE PRN Diphenhydramine HCl (Benadryl) 25 mg PO Q8 PRN PRN Reason: Allergy symptoms Famotidine (Pepcid) 20 mg PO DAILY [facility] Last Admin: 09/18/18 09:43 Dose: 20 mg Famotidine (Pepcid) 20 mg IVP ONCE PRN Ferrous Sulfate (Feosol) 325 mg PO TID [facility] Last Admin: 09/18/18 17:49 Dose: 325 mg Hydromorphone HCl (Dilaudid) 0.5 mg IVP Q6H PRN PRN Reason: Pain, severe (8-10) Last Admin: 09/18/18 20:15 Dose: 0.5 mg Ceftriaxone Sodium (Rocephin Iv 1 Gm Duplex) 50 mls @ 100 mls/hr IVPB Q12H JOSÉ MIGUEL; Protocol Last Admin: 09/18/18 22:40 Dose: 100 mls/hr Meropenem 500 mg/ Sodium (Chloride) 100 mls @ 100 mls/hr IVPB Q8H JOSÉ MIGUEL; Protocol Last Admin: 09/18/18 21:00 Dose: 100 mls/hr Methylprednisolone (Solu-Medrol) 125 mg IVP ONCE PRN - Labs Labs: 09/18/18 09:32 09/18/18 09:32 - Constitutional Appears: No Acute Distress - Head Exam Head Exam: NORMAL INSPECTION - Eye Exam Eye Exam: EOMI, PERRL - ENT Exam ENT Exam: Normal Oropharynx - Neck Exam Neck Exam: Normal Inspection - Respiratory Exam Respiratory Exam: Clear to Ausculation Bilateral, NORMAL BREATHING PATTERN - Cardiovascular Exam Cardiovascular Exam: REGULAR RHYTHM, +S1, +S2 - GI/Abdominal Exam GI & Abdominal Exam: Soft, Normal Bowel Sounds. absent: Guarding - Extremities Exam Extremities Exam: Normal Capillary Refill. absent: Calf Tenderness, Pedal Edema - Neurological Exam Neurological Exam: Alert, Awake, CN II-XII Intact, Oriented x3 - Psychiatric Exam Psychiatric exam: Normal Mood - Skin Skin Exam: Normal Color, Warm Assessment and Plan (1) Urinary retention Status: Acute (2) Urinary tract infection Status: Acute (3) Spina bifida Status: Acute (4) S/P INDUSTRIAL ENGINEERING PROFESSOR shunt Status: Acute - Assessment and Plan (Free Text) Plan: PT TOLERATED IV MERREM, TO CONTINUE iv MERREM 500 MG EVERY 8 HOURLY FOR MULTIDRUG-RESISTANT pROTEUS MIRABILIS. CONTACT ISOLATION. F/U REPEAT CLEAN CATCH UA/ URINE CULTURE IN AM PER FURTHER WORKUP.
--- NOTE | 2018-09-19 01:42 | PN ---
DATE: 09/18/2018 SUBJECTIVE: The patient was seen and examined at bedside on 09/18/2018. Still complaining about abdominal pain and flank pain but it is getting better. No fever, no chills. No hematuria or hematochezia. No headache or dizziness. No chest pain. No palpitation. PHYSICAL EXAMINATION: VITAL SIGNS: Blood pressure 116/72, respiratory rate 18, pulse 82. The patient is afebrile. HEENT: Head: Normocephalic and atraumatic. Eyes: PERRLA. Extraocular muscles intact. Conjunctiva clear. Nose patent. NECK: Supple. No carotid bruits. No JVD. No thyromegaly. CHEST: Bilaterally symmetrical. HEART: S1 and S2 positive. LUNGS: Clear to auscultation. ABDOMEN: Soft. Bowel sounds present. No organomegaly. EXTREMITIES: No edema. No cyanosis. NEUROLOGIC: The patient is awake and alert. Moving all four extremities. No focal deficits. MEDICATIONS: Benadryl, Dilaudid, iron, NS, Os-Martín, Pepcid, famotidine, Tylenol. LABORATORY DATA: White blood cell 3.7, hemoglobin 11.8, hematocrit 34.7, platelets 230. Sodium 139, potassium 4.1, BUN 9, creatinine 0.7, calcium 8.5. ASSESSMENT AND PLAN: Mr. Cristhian Ruff is a 38-year-old male with leukopenia, anemia, hyperchloremia, hypocalcemia, iron deficiency, proteinuria, hematuria, urinary tract infection. Seen by Infectious Disease, Dr. Fernando Linares. He has history of urinary retention, using self catheterization. Spina bifida, status post ventriculoperitoneal shunt. Continue antibiotics as per Infectious Disease. Urologist and Gastroenterology is on the case. Repeat labs. We will follow up. Bernadette Ybarra MD MTDD
[2018-09-19] MEDS: HYDROmorphone 0.5 mg/0.5 ml ISec IVP PRN ×4 (02:28→21:31)
--- NOTE | 2018-09-19 03:58 | CON ---
DATE: 09/15/2018 UROLOGY CONSULTATION REQUESTED BY: Bernadette Ybarra MD FILLED BY: Lacey Cazares MD REASON FOR CONSULTATION: Urinary tract infection, hydronephrosis. HISTORY OF PRESENT ILLNESS: The patient is a 38-year-old male, admitted with urinary tract infection. The patient is in otherwise fair health. The patient reports that he has a neurogenic bladder. The patient has history of spina bifida. The patient has been on intermittent self-catheterization. He was catheterizing himself approximately five times a day. The patient reports that he has had difficulty catheterizing himself for the past 1 to 2 days. There has been no fever. No hematuria. No flank pain. No recent fever or rigors. The patient reports that he was sent to the emergency room by his cash register operator. The patient had recently had GI endoscopy. Mr. Ruff has history of hydronephrosis. He is followed by urologist in [place]. He reports that last year he had an ureteral stent inserted. The ureteral stent was subsequently removed. The patient reports no history of urolithiasis. There has been no nausea, vomiting. No chest pain. No shortness of breath. The patient is now admitted for further evaluation and therapy. The patient does not smoke. The patient reports that he is not working at present due to disability. The patient reports that he is able to ambulate with difficulty. He has leg braces and prosthesis to help with ambulation. The patient reports that he is able to achieve an erection. PHYSICAL EXAMINATION: GENERAL: The patient is a well-developed, well-nourished middle-aged male. The patient is awake and alert. The patient is in no acute distress. ABDOMEN: Soft, nontender, nondistended. No mass or organomegaly. BACK: No CVA tenderness. GENITALIA: Normal male. Scrotal contents without inflammation. The Guevara catheter is in place. Urine is cloudy via the Guevara catheter. LABORATORY DATA: On admission, laboratory data revealed a white blood count of 5600, hematocrit 41.9, platelet count 252,000. Urinalysis reveals revealed 107 white blood cells. Bacteria were present. Nitrite positive. BUN 18, creatinine 0.8, glucose 83. CAT scan is reported to show left hydronephrosis. IMPRESSION: Urinary tract infection. Neurogenic bladder. Indwelling Guevara catheter at present. Previous treatment for neurogenic bladder and presumed retention with intermittent self-catheterization. Left hydronephrosis. RECOMMENDATIONS AND PLAN: Urine culture. Antibiotic therapy. Monitor clinical course. Review CT scan. Further therapy to follow according to the patient's clinical course. Possible need for cystoscopy. Lacey Cazares MD
[2018-09-19] MEDS: Meropenem 500 MG in Sodium Chloride 0.9% 100 ML IVPB SCH ×3 (05:56→21:31)
[2018-09-19 07:16] LABS: HEMOGLOBIN 12.2 g/dL (12.0-18.0); MEAN CELL VOLUME 88.8 fL (80.0-94.0); MEAN CORPUSCULAR HEMOGLOBIN 30.4 pg (27.0-31.0); MEAN CORPUSCULAR HGB CONC 34.3 g/dL (33.0-37.0); RBC 4.01 Mil/uL (4.40-5.90); RED CELL DISTRIBUTION WIDTH 13.8 % (11.5-14.5); WHITE BLOOD COUNT 4.2 K/uL (4.8-10.8)
[2018-09-19 08:09] VITALS: RESP 20
[2018-09-19 08:21] LABS: ALB/GLOB RATIO 1.2 (1.0-2.1); ALBUMIN 3.3 g/dL (3.5-5.0); ALT/SGPT 14 U/L (21-72); AST/SGOT 18 U/L (17-59); BLOOD UREA NITROGEN 19 mg/dL (9-20); CALCIUM 8.7 mg/dl (8.6-10.4); GFR NON-AFRICAN AMERICAN > 60
--- NOTE | 2018-09-19 08:48 | PN ---
DATE: 09/17/2018 SUBJECTIVE: The patient is a 38-year-old male. The patient was seen and examined at the bedside on 09/17/2018. Looking comfortable. No fever. No chills. No hematuria or hematochezia. No headache or dizziness. No chest pain. No palpitation. Abdominal pain is getting better. PHYSICAL EXAMINATION: VITAL SIGNS: Pulse 82, respiratory rate 18, blood pressure 120/70. HEENT: Head; normocephalic and atraumatic. Eyes; PERRLA, extraocular muscles intact, conjunctivae clear. Nose patent. Mucous membranes moist. NECK: Supple. No carotid bruit. No JVD or thyromegaly. CHEST: Bilaterally symmetrical. HEART: S1 and S2 positive. LUNGS: Clear to auscultation. ABDOMEN: Soft. Bowel sounds present. No organomegaly. EXTREMITIES: No edema. No cyanosis. NEUROLOGIC: The patient is awake and alert. Moving all four extremities. No focal deficit. MEDICATIONS: Benadryl, Dilaudid, iron, Pepcid, Rocephin, Solu-Medrol, and Tylenol. LABORATORY DATA: White blood cell is 5.3, hemoglobin 12.3, hematocrit 38.3, platelets 223. Sodium 139, potassium 4.3, BUN 12, creatinine 0.9, glucose 90, and calcium 8.5. ASSESSMENT AND PLAN: The patient is a 38-year-old male with hyperchloremia, hypocalcemia, iron deficiency, history of spina bifida, has abdominal pain. The patient is paraplegic with prosthetic legs and brace, bilateral flank pain, hypochromic microcytic anemia, and peptic ulcer disease. Abnormal CAT scan of the abdomen and pelvis as per Dr. Rendon. Electrolyte imbalance. colonoscopy with polypectomy done recently by Dr. Rendon. Continue present treatment, antibiotics. Neurologist is on the case. We will follow up. Bernadette Ybarra MD MTDD
[2018-09-19] MEDS: Calcium-Vit D 250 mg-125 Units Tab UD PO SCH (09:49)
--- NOTE | 2018-09-19 18:56 | PN ---
DATE: 09/19/2018 LOCATION: 564, bed B. SUBJECTIVE: This is a 38-year-old male seen and examined in rounds without significant clinical changes with less abdominal pain. No chest pain, palpitation or significant complaint of shortness of breath. The entire chart is reviewed including but not limited to the most recent lab and radiology study results, current and the previous medication list and today's CBC showed white blood cells of 4.2 otherwise within normal limits with low albumin 3.3, low total protein 5.9. PHYSICAL EXAMINATION: GENERAL: A 38-year-old male, awake, alert, oriented. VITAL SIGNS: Afebrile with pulse of 80, respiratory rate 20-22, blood pressure 114/64. HEENT: Showed pale dry oral mucoid membrane. Nonicteric sclerae. LUNGS: Few scattered crepitation. Decreased air entry at bases. HEART: Positive S1 and S2. ABDOMEN: Soft with mild generalized tenderness. No mass or organomegaly. No rebound tenderness or guarding. EXTREMITIES: Without significant edema, clubbing or cyanosis. NEUROLOGIC: No reported new neurological deficits, sensory or motor. The patient has bilateral artificial lower extremities with evidence of paraplegia by history. IMPRESSION: 1. Re-exacerbation of peptic ulcer disease. 2. Urinary tract infection. 3. Known history of spina bifida. SUGGESTIONS: 1. Continue current management. 2. Neurology followup. 3. Cancer markers including CEA. 4. Further recommendation to follow. Misty Castillo MD
--- NOTE | 2018-09-19 20:44 | PN ---
DATE: 09/19/2018 SUBJECTIVE: The patient is 38-year-old male. The patient was seen and examined on bedside on 09/19/2018. Looking comfortable. No fever, no chills, no hematuria, no hematochezia. No headache, no dizziness, no chest pain, no palpitations. PHYSICAL EXAMINATION: VITAL SIGNS: Temperature 98.1, pulse 77, blood pressure 106/70, respiratory rate 20, oxygen saturation 95%. HEENT: Head: Atraumatic, normocephalic. Eyes: PERRLA. Extraocular muscles intact. Conjunctivae clear. Nose: Patent. Mucosal membranes moist. NECK: Supple. No carotid bruit. No JVD or thyromegaly. CHEST: Bilaterally symmetrical. HEART: S1 and S2, positive rub. LUNGS: Clear to auscultation. ABDOMEN: Soft. Bowel sounds present. No organomegaly. EXTREMITIES: No edema. No cyanosis. NEUROLOGICAL: The patient is awake and alert. Follows simple commands. MEDICATIONS: Benadryl, Dilaudid, iron, meropenem, calcium with vitamin D, Pepcid, Solu-Medrol, Tylenol. LABORATORY DATA: White blood cell 4.2, hemoglobin 12.2, hematocrit 35.6, platelets 225. Sodium 137, potassium 4.2, BUN 19, creatinine 1.1, random glucose 88, calcium 8.7. ASSESSMENT AND PLAN: Mr. Cristhian Ruff is a 38-year-old male with leukopenia, anemia, hyperchloremia, iron deficiency, proteinuria, hematuria, urinary tract infection, seen by Dr. Fernando Linares, Infectious Diseases, intravenous Merrem as per Infectious Diseases, urinary tract retention, used to do a self catheterization, spina bifida, subdural peritoneal and ventriculoperitoneal shunt. Continue Merrem 500 mg every 8 hourly for multidrug resistance proteus mirabilis. Contact isolation. Followup repeat clean catch urinalysis. Repeat labs. Urologist is also on the case. We will follow. Bernadette Ybarra MD [facility]ITALPaulette
[2018-09-19 20:50] LABS: SQUAMOUS EPITHIAL 2 /hpf (0-5); URINE BACTERIA OCC (<OCC); URINE BILIRUBIN NEGATIVE (NEGATIVE); URINE BLOOD 2+ (NEGATIVE); URINE CLARITY Turbid (Clear); URINE COLOR Red (YELLOW); URINE GLUCOSE (UA) NORMAL (Normal); URINE LEUKOCYTE ESTERASE 3+ Leu/uL (Negative); URINE PROTEIN 1+ mg/dL (NEGATIVE); URINE UROBILINOGEN NORMAL mg/dL (0.2-1.0)
--- NOTE | 2018-09-20 00:10 | PCM.URO ---
Urology Progress Note - General General: Tolerating Diet - Subjective Abdominal Pain: No Flank Pain: No Nausea: No Vomiting: No Voiding Well: No (NOLAND CATH IN PLACE) Dysuria: No Hematuria: No Dsypnea: No Chest Pain: No Fever & Chills: No - Objective Lab Results Last 24 Hours: Laboratory Results - last 24 hr 09/19/18 09/19/18 09/19/18 07:03 07:03 20:18 WBC 4.2 L RBC 4.01 L Hgb 12.2 Hct 35.6 MCV 88.8 MCH 30.4 MCHC 34.3 RDW 13.8 Plt Count 225 MPV 8.0 Sodium 137 Potassium 4.2 Chloride 102 Carbon Dioxide 29 Anion Gap 10 BUN 19 Creatinine 1.1 Est GFR ( Amer) > 60 Est GFR (Non-Af Amer) > 60 Random Glucose 88 Calcium 8.7 Total Bilirubin 0.2 AST 18 ALT 14 L Alkaline Phosphatase 71 Total Protein 5.9 L Albumin 3.3 L Globulin 2.6 Albumin/Globulin Ratio 1.2 Prostate Specific Ag 0.312 Urine Color Red Urine Clarity Turbid Urine pH 7.0 Ur Specific [place] 1.006 Urine Protein 1+ H Urine Glucose (UA) Normal Urine Ketones Negative Urine Blood 2+ H Urine Nitrate Negative Urine Bilirubin Negative Urine Urobilinogen Normal Ur Leukocyte Esterase 3+ H Urine WBC (Auto) 528 H Urine RBC (Auto) 38 H Ur Squamous Epith Cells 2 Urine Bacteria Occ H Intake & Output: Intake & Output 09/19/18 09/19/18 09/20/18 06:59 18:59 06:59 Intake Total 600 450 100 Output Total 2700 975 1000 Balance -2100 -525 -900 Intake: Intake, IV Amount 150 100 100 Left Hand 100 100 Right Antecubital 150 Oral 450 350 Output: Urine 2700 975 1000 Urethral (Noland) 2700 975 1000 Other: # Bowel Movements 0 Vital Signs: Vital Signs - 24 hr 09/19/18 09/19/18 07:08 15:00 Temperature 98.4 F 98.1 F Pulse Rate 77 77 Respiratory 20 20 Rate Blood Pressure 110/67 106/70 O2 Sat by Pulse 96 95 Oximetry - Physical Exam Abdominal Exam: Soft, Non-Tender, Non-Distended Back: No CVA Tenderness Genitalia: Without Inflammation Urinary Catheter Draining Well: Yes Urine Color: Yellow (CLOUDY URINE) - Male Scrotum: Normal Testes: Normal: Bilateral - Plan Discontinue Urinary Catheter: Yes (RECOMMEND: CATHETER REMOVAL AND THEN RESUME INTERMITTENT SELF-CATHETRIZATIO) Catheter Care: Yes Additional Information: SEVERE L HYDRONEPHROSIS MAY NEED FURTHER RX. DISCUSSED W PT, WHO WILL FOLLOW UP WITH HIS REGULAR UROLOGIST - Date & Time of Note Date: 09/19/18 Time: 11:06
[2018-09-20] MEDS: Meropenem 500 MG in Sodium Chloride 0.9% 100 ML IVPB SCH ×3 (05:34→21:23)
[2018-09-20] MEDS: Calcium-Vit D 250 mg-125 Units Tab UD PO SCH (09:57)
[2018-09-20] MEDS: HYDROmorphone 0.5 mg/0.5 ml ISec IVP PRN ×2 (09:57→17:02)
--- NOTE | 2018-09-20 12:21 | CP.PCM.PN ---
Subjective - Date & Time of Evaluation Date of Evaluation: 09/20/18 Time of Evaluation: 12:21 - Subjective Subjective: AFEBRILE, . NO COMPLAINTS . nO SHORTNESS OF BREATH. fEELING OKAY. SEEN BY OLEGARIO MONET TO BE DC TODAY PER OLEGARIO. LABS REVIEWED. REPEAT URINE CULTURE -GNR ( FROM FOLYS CATHETHER ) Objective - Vital Signs/Intake and Output Vital Signs (last 24 hours): Temp Pulse Resp BP Pulse Ox 97.7 F 83 20 106/64 96 09/20/18 08:00 09/20/18 09:56 09/20/18 08:00 09/20/18 09:56 09/20/18 08:00 Intake and Output: 09/20/18 09/20/18 06:59 18:59 Intake Total 100 Output Total 1650 Balance -1550 - Medications Medications: Current Medications Acetaminophen (Tylenol 325mg Tab) 650 mg PO Q6 PRN PRN Reason: Pain, moderate (4-7) Last Admin: 09/16/18 09:50 Dose: 650 mg Calcium/Vitamin D (Oscal-D 250 Mg-125 Units Tab) 1 tab PO DAILY [facility] Last Admin: 09/20/18 09:57 Dose: 1 tab Diphenhydramine HCl (Benadryl) 25 mg IVP ONCE PRN Diphenhydramine HCl (Benadryl) 25 mg PO Q8 PRN PRN Reason: Allergy symptoms Famotidine (Pepcid) 20 mg PO DAILY [facility] Last Admin: 09/20/18 09:57 Dose: 20 mg Famotidine (Pepcid) 20 mg IVP ONCE PRN Ferrous Sulfate (Feosol) 325 mg PO TID [facility] Last Admin: 09/20/18 09:57 Dose: 325 mg Hydromorphone HCl (Dilaudid) 0.5 mg IVP Q6H PRN PRN Reason: Pain, severe (8-10) Last Admin: 09/20/18 09:57 Dose: 0.5 mg Meropenem 500 mg/ Sodium (Chloride) 100 mls @ 100 mls/hr IVPB Q8H [facility]; Protocol Last Admin: 09/20/18 05:34 Dose: 100 mls/hr Methylprednisolone (Solu-Medrol) 125 mg IVP ONCE PRN - Labs Labs: 09/19/18 07:03 09/19/18 07:03 - Constitutional Appears: No Acute Distress - Head Exam Head Exam: NORMAL INSPECTION - Eye Exam Eye Exam: EOMI, PERRL - ENT Exam ENT Exam: Normal Oropharynx - Neck Exam Neck Exam: Normal Inspection. absent: Meningismus - Respiratory Exam Respiratory Exam: Clear to Ausculation Bilateral, NORMAL BREATHING PATTERN - Cardiovascular Exam Cardiovascular Exam: REGULAR RHYTHM, +S1, +S2 - GI/Abdominal Exam GI & Abdominal Exam: Soft, Normal Bowel Sounds - Neurological Exam Neurological Exam: Alert, Awake, CN II-XII Intact, Oriented x3 - Psychiatric Exam Psychiatric exam: Normal Mood - Skin Skin Exam: Normal Color, Warm Assessment and Plan (1) Urinary retention Status: Acute (2) Urinary tract infection Status: Acute (3) Spina bifida Status: Acute (4) S/P STEREOTYPER APPRENTICE shunt Status: Acute - Assessment and Plan (Free Text) Plan: TO CONTINUE iv MERREM 500 MG EVERY 8 HOURLY FOR MULTIDRUG-RESISTANT pROTEUS MIRABILIS. CONTACT ISOLATION. F/U REPEAT CLEAN CATCH UA/ URINE CULTURE AFTER 4HOURS OF D/C NOLAND.( MIDSTREAM CATHETERIZED ) F/U CULTURES TO ADJUST ABX. PER .
[2018-09-20 20:52] LABS: URINE BILIRUBIN NEGATIVE (NEGATIVE); URINE BLOOD 1+ (NEGATIVE); URINE CLARITY Hazy (Clear); URINE COLOR Yellow (YELLOW); URINE GLUCOSE (UA) NORMAL (Normal); URINE LEUKOCYTE ESTERASE 3+ Leu/uL (Negative); URINE PROTEIN 2+ mg/dL (NEGATIVE); URINE UROBILINOGEN NORMAL mg/dL (0.2-1.0)
[2018-09-21] MEDS: HYDROmorphone 0.5 mg/0.5 ml ISec IVP PRN (02:58)
[2018-09-21] MEDS: Meropenem 500 MG in Sodium Chloride 0.9% 100 ML IVPB SCH ×2 (05:59→13:55)
--- NOTE | 2018-09-21 07:13 | PN ---
DATE: 09/20/2018 SUBJECTIVE: The patient was seen and examined at bedside on 09/20/2018. Looking comfortable. Tolerating food very well. No fever. No chills. No hematuria, no hematochezia. No headache, no dizziness. No chest pain, no palpitation. PHYSICAL EXAMINATION: VITAL SIGNS: Temperature 97.7, pulse 69, blood pressure 120/67, respiratory rate 20. HEENT: Head: Normocephalic, atraumatic. Eyes: PERRLA. Extraocular muscles intact. Conjunctivae clear. Nose: Patent. Mucosal membranes moist. NECK: Supple. No carotid bruit. No JVD. No thyromegaly. CHEST: Bilaterally symmetrical. HEART: S1 and S2 positive. LUNGS: Clear to auscultation. ABDOMEN: Soft. Bowel sounds present. No organomegaly. EXTREMITIES: No edema. No cyanosis. NEUROLOGICAL: The patient is awake and alert. Moving all four extremities. No focal deficits. MEDICATIONS: Benadryl, Dilaudid, iron, meropenem, famotidine, Pepcid, Solu-Medrol one dose. LABORATORY DATA: White blood cell 4.2, hemoglobin 12.2, hematocrit 35.6, platelets 225. Sodium 137, potassium 4.2, BUN 19, creatinine 1.1, glucose 94. ASSESSMENT AND PLAN: The patient is a 38-year-old male with leukopenia, anemia, history of hypocalcemia improved, iron deficiency, getting iron, proteinuria, hematuria, urinary tract infection, history of spina bifida, hydronephrosis of the kidneys, repeated urinary tract infection. He is seen by Dr. Fernando Linares. Continue antibiotics as per Infectious Diseases, intravenous Merrem. Urologist is on the case. According to him, discontinue Guevara catheter, continue self catheterization. History of ventriculoperitoneal shunt. Pain management. Repeat labs. We will follow. Bernadette Ybarra MD MTDD
--- NOTE | 2018-09-21 07:16 | PN ---
DATE: 09/20/2018 LOCATION: 564, bed B. SUBJECTIVE: This is a 38-year-old male, seen and examined in rounds with positive urine culture for gram-negative rods, had been on antibiotics, recently with a complaint of mild crampy abdominal pain. No reported active bleeding. No nausea or vomiting or chest pain or palpitation. The entire chart is reviewed including the most recent lab results and today's blood glucose level is 87. Rest of the results still pending. PHYSICAL EXAMINATION: GENERAL: A 38-year-old male, awake, alert, oriented. VITAL SIGNS: Afebrile with pulse of 80, respiratory rate 20 to 22, blood pressure of 110/66. HEENT: Showed pale dry oral mucous membrane. Nonicteric sclera. LUNGS: Few scattered crepitation. Decreased air entry at bases. HEART: Positive S1 and S2. ABDOMEN: Soft with mild generalized tenderness. No mass or organomegaly. No rebound tenderness or guarding. EXTREMITIES: With artificial limbs. The patient has spina bifida. NEUROLOGIC: No reported other neurological deficits, sensory or motor. IMPRESSION: 1. Re-exacerbation of peptic ulcer disease. 2. Urinary tract infection with hydronephrosis. 3. Known history of spina bifida. SUGGESTIONS: 1. Continue current management. 2. Guaiac all the stools every day x3. 3. Proton pump inhibitors IV. 4. Further recommendation to follow. Misty Castillo MD
[2018-09-21] MEDS: Calcium-Vit D 250 mg-125 Units Tab UD PO SCH (10:00)
--- NOTE | 2018-09-21 12:33 | CP.PCM.PN ---
Subjective - Date & Time of Evaluation Date of Evaluation: 09/21/18 Time of Evaluation: 12:33 - Subjective Subjective: AFEBRILE, . NO COMPLAINTS . nO SHORTNESS OF BREATH. fEELING OKAY. SEEN BY OLEGARIO . TIERNEY PEREIRA 09/21/18 LABS REVIEWED. REPEAT URINE CULTURE -VE GROWTH (CLEAN CATCH ) REPEAT URINE CULTURE -GNR ( FROM FOLYS CATHETHER )? CONTAMINANT. PLAN CASE DISCUSSED WITH BHAVESH SAM. PT TO DO SELF CATHETHERIZATION.PRN OK TO DC PT AFTER DOSE OF IV MERREM TODAY ( DAY 5 ) PT TO F/U WITH HIS . Objective - Vital Signs/Intake and Output Vital Signs (last 24 hours): Temp Pulse Resp BP Pulse Ox 97.5 F L 67 20 100/61 94 L 09/21/18 07:10 09/21/18 07:10 09/21/18 07:10 09/21/18 07:10 09/21/18 07:10 Intake and Output: 09/21/18 09/21/18 06:59 18:59 Intake Total 100 Output Total 700 Balance -600 - Medications Medications: Current Medications Acetaminophen (Tylenol 325mg Tab) 650 mg PO Q6 PRN PRN Reason: Pain, moderate (4-7) Last Admin: 09/16/18 09:50 Dose: 650 mg Calcium/Vitamin D (Oscal-D 250 Mg-125 Units Tab) 1 tab PO DAILY [facility] Last Admin: 09/21/18 10:00 Dose: 1 tab Diphenhydramine HCl (Benadryl) 25 mg IVP ONCE PRN Diphenhydramine HCl (Benadryl) 25 mg PO Q8 PRN PRN Reason: Allergy symptoms Famotidine (Pepcid) 20 mg PO DAILY [facility] Last Admin: 09/21/18 09:59 Dose: 20 mg Famotidine (Pepcid) 20 mg IVP ONCE PRN Ferrous Sulfate (Feosol) 325 mg PO TID [facility] Last Admin: 09/21/18 09:59 Dose: 325 mg Hydromorphone HCl (Dilaudid) 0.5 mg IVP Q6H PRN PRN Reason: Pain, severe (8-10) Last Admin: 09/21/18 02:58 Dose: 0.5 mg Meropenem 500 mg/ Sodium (Chloride) 100 mls @ 100 mls/hr IVPB Q8H [facility]; Protocol Last Admin: 09/21/18 05:59 Dose: 100 mls/hr Methylprednisolone (Solu-Medrol) 125 mg IVP ONCE PRN - Labs Labs: 09/19/18 07:03 09/19/18 07:03 - Constitutional Appears: No Acute Distress - Head Exam Head Exam: NORMAL INSPECTION - Eye Exam Eye Exam: EOMI, PERRL - ENT Exam ENT Exam: Normal Oropharynx - Respiratory Exam Respiratory Exam: Clear to Ausculation Bilateral - Cardiovascular Exam Cardiovascular Exam: REGULAR RHYTHM, +S1, +S2 - GI/Abdominal Exam GI & Abdominal Exam: Soft, Normal Bowel Sounds - Neurological Exam Neurological Exam: Alert, Awake, CN II-XII Intact, Oriented x3 - Skin Skin Exam: Normal Color, Warm Assessment and Plan (1) Urinary retention Status: Acute (2) Urinary tract infection Status: Acute (3) Spina bifida Status: Acute (4) S/P PRODUCT TRANSFER PUMPER shunt Status: Acute
--- NOTE | 2018-09-21 13:51 | CP.PCM.PN ---
Subjective - Date & Time of Evaluation Date of Evaluation: 09/21/18 Time of Evaluation: 13:00 - Subjective Subjective: Patient seen today states feels better, denies michelle abdominal pain, N/V/D vss and labs reviewed - stable A FEBRILE Objective - Vital Signs/Intake and Output Vital Signs (last 24 hours): Temp Pulse Resp BP Pulse Ox 97.5 F L 67 20 100/61 94 L 09/21/18 07:10 09/21/18 07:10 09/21/18 07:10 09/21/18 07:10 09/21/18 07:10 Intake and Output: 09/21/18 09/21/18 06:59 18:59 Intake Total 100 Output Total 700 Balance -600 - Medications Medications: Current Medications Acetaminophen (Tylenol 325mg Tab) 650 mg PO Q6 PRN PRN Reason: Pain, moderate (4-7) Last Admin: 09/16/18 09:50 Dose: 650 mg Calcium/Vitamin D (Oscal-D 250 Mg-125 Units Tab) 1 tab PO DAILY [facility] Last Admin: 09/21/18 10:00 Dose: 1 tab Diphenhydramine HCl (Benadryl) 25 mg IVP ONCE PRN Diphenhydramine HCl (Benadryl) 25 mg PO Q8 PRN PRN Reason: Allergy symptoms Famotidine (Pepcid) 20 mg PO DAILY [facility] Last Admin: 09/21/18 09:59 Dose: 20 mg Famotidine (Pepcid) 20 mg IVP ONCE PRN Ferrous Sulfate (Feosol) 325 mg PO TID [facility] Last Admin: 09/21/18 09:59 Dose: 325 mg Hydromorphone HCl (Dilaudid) 0.5 mg IVP Q6H PRN PRN Reason: Pain, severe (8-10) Last Admin: 09/21/18 02:58 Dose: 0.5 mg Meropenem 500 mg/ Sodium (Chloride) 100 mls @ 100 mls/hr IVPB Q8H [facility]; Protocol Last Admin: 09/21/18 05:59 Dose: 100 mls/hr Methylprednisolone (Solu-Medrol) 125 mg IVP ONCE PRN Senna/Docusate Sodium (Senokot S 50 Mg-8.6 Mg) 1 tab PO DAILY [facility] - Labs Labs: 09/19/18 07:03 09/19/18 07:03 Assessment and Plan - Assessment and Plan (Free Text) Assessment: A/P 38 y/o male with a PMHx of spina bifida and previous pyelonephritis and hydronephrosis,admitted with urinary retention/ uti + with proteus mirabilus and sensitive to merrum Patient started on merepenum and tolerated without reaction f/c discontinued and repeat urine culture- negative Dr. Cazares recommends to stright cath PRN and f/u with his urologist D/w Dr. Soriano patient can be discharged home today after dose of merropenum D/W Dr. Mccarthy , cleared for discharge home today and f/u with Shari Donnelly office in 1 week discharge plan discussed with patient who understands and agrees with plan
[2018-09-21 15:42] VITALS: BP 104/63; PULSE 83; TEMP 97.9; O2SAT 95
--- NOTE | 2018-09-21 17:19 | PN ---
DATE: 09/21/2018 LOCATION: 564, bed B. SUBJECTIVE: This is a 38-year-old male seen and examined in rounds without reported evidence of GI bleeding. No chest pain or palpitation. No chills or fever as per early this morning, but lower abdominal pain on and off, had been on antibiotics since the admission. The entire chart is reviewed, including but not limited to the most recent lab and radiology study results, current and the previous medication list, current and the previous medical events, and today's lab is still pending. The patient is still having low total protein and albumin, but normal CBC, in general, and had been followed up by the nephrology network systems consultant. PHYSICAL EXAMINATION: GENERAL: A 38-year-old male, awake, alert, oriented, afebrile, and paraplegic. VITAL SIGNS: Pulse of 74, respiratory rate 20 to 22, and blood pressure 110/64. HEENT: Showed pale, dry oral mucous membrane mildly, nonicteric sclerae. LUNGS: Few scattered mild crepitation. Decreased air entry at bases. HEART: Positive S1 and S2. ABDOMEN: Soft with mild generalized tenderness. No mass or organomegaly. No rebound tenderness or guarding. EXTREMITIES: Without significant clubbing, cyanosis or edema. NEUROLOGICAL: No reported new neurological deficits, sensory or motor. No reported new focal deficits. The patient is paraplegic with artificial lower extremities. IMPRESSION: 1. Peptic ulcer disease. 2. Urinary tract infection with hydronephrosis. 3. Known history of spina bifida. 4. Abnormal CAT scan of the abdomen and pelvis. 5. Recent history of dehydration, improving with reported history of iron-deficiency anemia. 6. Status post colonoscopy with polypectomy, by recent history. SUGGESTIONS: 1. Continue current management. 2. Guaiac all the stools daily x3. 3. Antireflux measure. 4. Further recommendation to follow. Misty Castillo MD
[2018-09-21] MEDS ORDERED: Docusate-Senna 50 mg-8.6 mg Tab PO SCH (18:00)
--- NOTE | 2018-09-21 22:04 | PCM.URO ---
Urology Progress Note - General General: No Complaints, Tolerating Diet - Subjective Abdominal Pain: No (constipation reported) Flank Pain: No Nausea: No Vomiting: No Voiding Well: No (on intermittent self-cath for retention) Dysuria: No Hematuria: No Stone Passed: No Dsypnea: No Chest Pain: No Fever & Chills: No - Objective Intake & Output: Intake & Output 09/21/18 09/21/18 09/22/18 06:59 18:59 06:59 Intake Total 100 Output Total 700 450 Balance -600 -450 Intake: Intake, IV Amount 100 Left Hand 100 Output: Urine 700 450 Straight 300 450 Urethral (Guevara) 400 Vital Signs: Vital Signs - 24 hr 09/20/18 09/21/18 09/21/18 23:00 07:10 15:00 Temperature 98.2 F 97.5 F L 97.9 F Pulse Rate 70 67 83 Respiratory 20 20 20 Rate Blood Pressure 114/74 100/61 104/63 O2 Sat by Pulse 96 94 L 95 Oximetry - Physical Exam Abdominal Exam: Soft, Non-Tender, Non-Distended Back: No CVA Tenderness Genitalia: Without Inflammation Urine Color: Clear - Male Phallus: Normal Scrotum: Normal - Plan See Orders: Yes Additional Information: IMP: neurogenic bladder. retention. uti. improved overall. rec/p: antibiotica as per ID. continue intermittent self- catheterization. outpt f/u. discussed w pt and w nursing staff. YS - Date & Time of Note Date: 09/21/18 Time: 13:15
--- NOTE | 2018-09-22 07:39 | CON ---
DATE: 09/16/2018 LOCATION: Room 564, bed B. HISTORY OF PRESENT ILLNESS: This is a 38-year-old male, very well-known case for me from previous admissions and office visits with status post upper and lower endoscopy few weeks ago with status post polypectomy, seen in my office prior to his admission due to severe abdominal pain, right and left lower extremity tenderness with bilateral flank pain with dysuria and decreased urine output as well as nausea and dyspepsia. The patient felt he has what appears to be a urinary retention for which he was directed to be admitted to the hospital. No reported chest pain, palpitation, chills or fever, or evidence of active GI bleeding at that time. No significant complaint of shortness of breath. The patient is paraplegic. PAST MEDICAL HISTORY: Including but not limited to, 1. Spina bifida. 2. Chronic renal disorder with recurrent urinary tract infection, with evidence of hydronephrosis and pyelonephritis before. 3. Colon polyp, status post polypectomy done through recent colonoscopy. 4. Severe anxiety syndrome. 5. Peptic ulcer disease. LABORATORY DATA: Initial blood workup showed normal CBC. However, the most recent blood testing showed normal BUN and creatinine, calcium was 8.5 with low iron and low iron saturation. Urinalysis was abnormal. At the time of the admission, the patient had CAT scan of the abdomen and pelvis, official report is seen. PHYSICAL EXAMINATION: GENERAL: A 38-year-old male seen and examined for GI consultation on 09/16/2018 in the presence of the staff in the floor. A short handwritten consultation sheet left in the chart at the time. VITAL SIGNS: The patient is afebrile with pulse of 68, respiratory 20 to 22, blood pressure 104/62. HEENT: Showed pale dry oral mucoid membrane mildly, nonicteric sclerae. LYMPH NODES: No lymphadenitis or lymphadenopathy. LUNGS: Clear breathing sounds are present bilaterally. HEART: Positive S1 and S2. ABDOMEN: Soft with [id number] generalized tenderness. No mass or organomegaly. No rebound tenderness or guarding. EXTREMITIES: The patient is paraplegic with artificial limbs. NEUROLOGIC: No reported new neurological deficits, sensory or motor. IMPRESSION: 1. 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 2. Re-exacerbation of peptic ulcer disease. 3. Colon polyp by recent colonoscopy, status post polypectomy. 4. Multiple past medical history as above including spina bifida. SUGGESTIONS: 1. Continue current management. 2. Cancer markers including CEA. 3. Peripheral hyperalimentation. 4. Proton pump inhibitors IV. 5. Further recommendation to follow. Misty Castillo MD
--- NOTE | 2018-09-22 10:15 | DS ---
The patient was seen and examined at the bedside on 09/21/2018. CHIEF COMPLAINT: Flank pain, suprapubic pain, urinary problems. HISTORY OF PRESENT ILLNESS: Mr. Cristhian Ruff is a 38-year-old male with past medical history of spinal bifida, pyelonephritis, hydronephrosis, came with problem of difficulty of passing urine. From last couple of days, the patient has problem with voiding. He is complaining of fullness in the bladder as well as left flank and suprapubic pain. Recently did colonoscopy by Dr. Rendon. We admitted the patient. They did CAT scan of the abdomen and pelvis. Seen by Dr. Fernando Linares for UTI, Dr. Misty Castillo for abdominal pain and colon polyps. Seen by urologist, Dr. Debora Rahman. The patient improved. Pain management, antibiotics was given. Discharged home. The patient discharged by Marina Hewitt. Followup in my office and his own urologist. 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 SOCIAL HISTORY: No smoking. No drugs. No ethanol. ALLERGIES: THE PATIENT IS ALLERGIC WITH LATEX AND MEROPENEM. FAMILY HISTORY: Father and mother, noncontributory. REVIEW OF SYSTEMS: The patient was seen and examined at the bedside, looking comfortable. No fever. No chills. No hematuria or hematochezia. No headache or dizziness. No chest pain. No palpitation. No more events happened overnight. PHYSICAL EXAMINATION: VITAL SIGNS: Temperature 97.5, pulse 67, respiratory rate 20, blood pressure 100/51, pulse oximetry 94. HEENT: Head, atraumatic and normocephalic. Eyes; PERRLA, extraocular muscles intact, conjunctivae clear. Nose patent. Mucous membranes moist. NECK: Supple. No carotid bruit. No JVD or thyromegaly. CHEST: Bilaterally symmetrical. HEART: S1 and S2 positive. LUNGS: Clear to auscultation. ABDOMEN: Soft. Bowel sounds present. No organomegaly. EXTREMITIES: No edema. No cyanosis. NEUROLOGICAL: The patient is awake and alert. Moving all four extremities. No focal deficits. MEDICATIONS: Tylenol, calcium with vitamin D, Benadryl, Pepcid, ferrous sulfate, hydromorphone, meropenem. LABORATORY DATA: White blood cell 4.2, hemoglobin 12.2, hematocrit 35.6, platelets 225. Sodium 137, potassium 4.2, BUN 19, creatinine 1.1, glucose 88. ASSESSMENT AND PLAN: Mr. Cristhian Ruff is a 38-year-old male with anemia, urinary tract infection, spinal bifida, status post ventriculoperitoneal shunt, urinary retention, status post endoscopy, having colonic polyp removed by Dr. Misty Castillo. The patient's cultures shows gram-negative growth, clean catch. Repeat urine cultures gram-negative rods from Guevara catheter contamination. The patient has ataxia, has clubbed feet. The patient was given intravenous antibiotics and pain management. He has peptic ulcer disease, history of hydronephrosis. Length of time discussion done with Dr. Moeller and Dr Lacey Cazares. Discontinue Guevara catheter. The patient started again self-catheterization. Will follow up with his own urologist. Abnormal CAT scan of the abdomen and pelvis. Recent history of dehydration, improved with treatment. Iron deficiency, guaiac all the stool daily x3. Dr. Misty Castillo to do antireflux treatment. The patient discharged home today with Marina Hewitt, nurse practitioner. We will follow up with his own urologist, primary care physician with labs. We will follow up. Bernadette Ybarra MD
== END 2018-09-21 16:55 | disposition home or self-care (01) | DRG 690 ==
LOC: C.ER 20:27 → C.9E 23:12 → C.5S 23:49
PROVIDERS: ADMIT Internal Medicine; ATTEND Internal Medicine
DX: N39.0 Urinary tract infection, site not specified (principal); G82.20 Paraplegia, unspecified; D50.9 Iron deficiency anemia, unspecified; E55.9 Vitamin D deficiency, unspecified; E83.51 Hypocalcemia; K59.00 Constipation, unspecified; N13.6 Pyonephrosis; N31.9 Neuromuscular dysfunction of bladder, unspecified; Q05.9 Spina bifida, unspecified; Z98.2 Presence of cerebrospinal fluid drainage device